=== PATIENT | female | born 1955 | race African-American/Black ===

== ENCOUNTER 2017-10-20 22:34 | Emergency (ER) | payer OTHER ==
[~2017-10-20] VITALS: Ht 165.1 cm; Wt 84.8 kg
[2017-10-20] MEDS ORDERED: BUSPIRONE HCL 15 MG TABLET (23:50)
[2017-10-20] MEDS ORDERED: FLUOXETINE HCL 40 MG CAPSULE (23:50)
--- NOTE | 2017-10-21 | NUR ---
Patient walked into ER c/o right shoulder pain due to lifting grocery bags earlier today. Able to move right shoulder with pain 3/10. Nerve and checks within normal limits
--- NOTE | 2017-10-21 01:10 | NUR ---
Patient discharged to home in stable conditon. Written and verbal after care instructions given. Patient verbalizes understanding of instructions. Walked out of ER with no distress noted
[2017-10-21 01:14] VITALS: BP 140/75
== END 2017-10-21 01:15 | disposition home or self-care (01) ==
LOC: ER 22:34
DX: M25.511 Pain in right shoulder (principal); E11.9 Type 2 diabetes mellitus without complications; I10 Essential (primary) hypertension; Z88.5 Allergy status to narcotic agent; Z88.8 Allergy status to other drugs, medicaments and biological substances; Z79.899 Other long term (current) drug therapy
CPT/HCPCS: 73030; 99284; A4663

== ENCOUNTER 2022-04-26 11:38 | Emergency (ER) | payer OTHER ==
[~2022-04-26] VITALS: Ht 165.1 cm; Wt 89.8 kg
[~2022-04-26 11:38] MED LIST: BUSPIRONE HCL 15 MG TABLET; FLUOXETINE HCL 40 MG CAPSULE
[2022-04-26] MEDS ORDERED: METF-442 PO (12:00)
[2022-04-26] MEDS ORDERED: AMLO10TA59 PO (12:00)
[2022-04-26] MEDS ORDERED: IV NORMAL SALINE 1000 ML BAG IV ONE (12:00)
[2022-04-26] MEDS ORDERED: VERAPAMIL PO (12:00)
[2022-04-26] MEDS ORDERED: BUSP10TA3 PO (12:00)
[2022-04-26] MEDS ORDERED: CALC-1029 PO (12:00)
[2022-04-26] MEDS ORDERED: TRAM50TA2 PO (12:00)
[2022-04-26] MEDS ORDERED: LOSA100T31 PO (12:00)
[2022-04-26] MEDS ORDERED: FLUO20CA42 PO (12:00)
[2022-04-26] MEDS ORDERED: ATOR10TA PO (12:00)
[2022-04-26] MEDS ORDERED: OMEP20TA5 PO (12:00)
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
[2022-04-26 12:01] LABS: HEMATOCRIT 36.4 % (31.2-41.9); MEAN CORPUSCULAR HEMOGLOBIN 28.9 uug (24.7-32.8); MEAN CORPUSCULAR VOLUME 87.6 fL (75.5-95.3); PLATELET COUNT (AUTO) 191 K/uL (179-408)
[2022-04-26 12:12] LABS: CARBON DIOXIDE 26 mmol/L (21-32); CHLORIDE 106 mmol/L (98-107); GLUCOSE 197 mg/dL (74-106); POTASSIUM 3.9 mmol/L (3.5-5.1); UREA NITROGEN, BLOOD 9 mg/dL (7-18)
[2022-04-26] MEDS ORDERED: ONDANSETRON 4 MG/2 ML VIAL IV ONE (12:15)
[2022-04-26] MEDS ORDERED: ONDANSETRON 4 MG/2 ML VIAL ONE (12:18)
[2022-04-26 13:43] LABS: *BILIRUBIN,URIN NEGATIVE (NEGATIVE); *BLOOD, URINE NEGATIVE (NEGATIVE); *CLARITY,URINE CLEAR (CLEAR); *COLOR,URINE YELLOW (YELLOW); *KETONES,URINE NEGATIVE (NEGATIVE); *UROBILINOGEN,URINE 0.2 E.U./dl (NORMAL); LEUKOCYTE ESTERASE ,URINE NEGATIVE (NEGATIVE); NITRITE, URINE NEGATIVE (NEGATIVE); PH,URINE 6.5 (5.0-8.0); UGLUCOSE NEGATIVE (NEGATIVE)
[2022-04-26 15:48] VITALS: BP 124/68
== END 2022-04-26 15:50 | disposition home or self-care (01) ==
LOC: ER 11:38
DX: R55 Syncope and collapse (principal); E11.65 Type 2 diabetes mellitus with hyperglycemia; Z79.84 Long term (current) use of oral hypoglycemic drugs; E78.5 Hyperlipidemia, unspecified; I10 Essential (primary) hypertension; Z88.6 Allergy status to analgesic agent; F32.A Depression, unspecified; Z79.899 Other long term (current) drug therapy
CPT/HCPCS: 99284; 96374; 71045; 96361; 80048; 81003; 82962; 85025; 84484; 36415; 93005; J2405; J7040; A4663